=== PATIENT | female | born 1980 | race Caucasian/White ===

== ENCOUNTER → 2016-08-19 | Outpatient (CLI) | payer OTHER | END | disposition home or self-care (01) | LOC: GMAM 14:00 | PROVIDERS: ATTEND Family Medicine | DX: E53.9 Vitamin B deficiency, unspecified (principal); E03.9 Hypothyroidism, unspecified; R31.9 Hematuria, unspecified; E55.9 Vitamin D deficiency, unspecified ==

== ENCOUNTER → 2016-10-24 | Outpatient (CLI) | payer OTHER | END | disposition home or self-care (01) | LOC: GMAM 10:24 | PROVIDERS: ATTEND Family Medicine | DX: E03.9 Hypothyroidism, unspecified (principal) ==

== ENCOUNTER → 2017-05-09 | Outpatient (CLI) | payer OTHER ==
--- NOTE | 2017-05-09 13:06 | RAD ---
EXAM: Ankle,Left 3 Views HISTORY: PN IN LEFT ANKLE AND JOINTS OF LEFT FOOT COMPARISON: February 28, 2015 TECHNIQUE: Three radiographic views of ankle FINDINGS: Unremarkable bony alignment in the ankle without fracture nor dislocation. Tibial plafond and ankle mortise are maintained. Joint spaces are maintained. No malleolar swelling nor significant joint effusion. IMPRESSION: No bony injury in left ankle. No significant change since prior study. Electronically signed by: Francisco Calderon MD 05/09/2017 1:06 PM [facility]
== END ==
LOC: RAD 08:36
PROVIDERS: ATTEND Orthopaedic Surgery
DX: M25.572 Pain in left ankle and joints of left foot (principal)

== ENCOUNTER → 2019-02-19 | Outpatient (CLI) | payer BC ==
--- NOTE | 2019-02-19 08:07 | RAD ---
EXAM DESCRIPTION: Ankle x-ray,Left 3 Views CLINICAL HISTORY: 38 years, Female, PAIN IN LEFT ANKLE AND JOINTS OF LEFT FOOT COMPARISON: Previous x-ray left ankle three views May 09, 2017 TECHNIQUE: AP/lateral/oblique of the left ankle FINDINGS: Intact medial and lateral malleolus. Mild irregularities along the lateral aspect of the midfoot could be old trauma or degenerative change. No overlying soft tissue swelling to suggest acute avulsion. Small fragments are well-corticated. There is no significant soft tissue swelling laterally or medially. Intact proximal metatarsals. Intact dome of the talus. Lateral view shows no evidence of acute fracture of the body of the talus or calcaneus. No calcaneal spurring is seen. No ankle joint narrowing, spurring or effusion. IMPRESSION: Negative for evidence of acute fracture or dislocation. Electronically signed by: Cem Aden MD 02/19/2019 8:05 AM [facility]
== END ==
LOC: RAD 07:44
PROVIDERS: ATTEND Orthopaedic Surgery
DX: M25.572 Pain in left ankle and joints of left foot (principal)

== ENCOUNTER → 2019-02-25 | Outpatient (CLI) | payer BC ==
--- NOTE | 2019-02-26 08:50 | MRI ---
EXAM DESCRIPTION: MRI left ankle CLINICAL HISTORY: Lateral ankle pain. Peroneal tendinitis. Rolled the ankle 3 years ago COMPARISON: None. TECHNIQUE: Multiplanar, multisequence MR images of the left ankle FINDINGS: Abnormal orientation of the calcaneocuboid articulation medially. Full-thickness chondral loss along both sides of the joint with subchondral marrow edema and joint line osteophytes. Hypertrophic spurring at the margin of the joint with a separate well-corticated bone fragment which measures about 1 cm in greatest dimension. In addition, there are dorsal and lateral marginal osteophytes arising from both the calcaneus and the cuboid. A small separate fragment along the dorsal lateral joint line. Mild osseous edema. The other joints of the hindfoot and ankle are normal. No other full-thickness chondrosis or osteochondral lesion Tibiofibular syndesmosis and ligaments are intact. Lateral and medial ankle ligaments are intact Intramuscular edema within the peroneal muscles along the lower ankle. Markedly thickened peroneus longus and mildly thickened peroneus brevis tendons above the lateral malleolus. Flattened tendons retromalleolar with markedly attenuated irregular morphology at and distal to the fibula, extending from the fibula to the level of the peroneal tubercle. At and distal to the peroneal tubercle the peroneus longus tendon is focally thickened with interstitial fissuring between the tubercle and cuboid. Normal distal insertion. Peroneus longus tendon is markedly attenuated proximal to the peroneal tubercle. Interstitial split morphology distal to the peroneal tubercle to the base of the fifth metatarsal. Posterior tibial distal tendinosis and interstitial partial tear. The tendon is attenuated just proximal to the navicular insertion with interstitial fissuring and abnormal signal. Interstitial increased signal is also present in the navicular attachment of the calcaneonavicular ligament. Flexor digitorum and flexor hallux tendons are normal. Dorsiflexion tendons are normal Achilles tendinosis distally. No tendon tear. No osseous abnormality. 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 Likely remote posttraumatic deformity medial and dorsal lateral. If there has not been significant history of trauma this may be accelerated arthritis because of a developmental/morphologic atypical anterior subtalar and medial calcaneocuboid articulation, less likely High-grade partial tear of the peroneus longus and peroneus brevis tendons, probably acute on chronic tears. Attenuated tendons distal to the fibula and varying degrees of interstitial partial tear. Proximal to the retromalleolar fibula the tendons are chronically thickened and the muscle is edematous and mildly atrophic. Posterior tibial insertional tendinosis/partial tear. Partial interstitial tear of the calcaneonavicular ligament at the navicular attachment Electronically signed by: Abraham Raymundo MD 02/26/2019 8:48 AM [facility]
== END ==
LOC: MRI 12:58
PROVIDERS: ATTEND Orthopaedic Surgery
DX: M76.72 Peroneal tendinitis, left leg (principal); M19.072 Primary osteoarthritis, left ankle and foot; S86.312A Strain of muscle(s) and tendon(s) of peroneal muscle group at lower leg level, left leg, initial encounter; S86.812A Strain of other muscle(s) and tendon(s) at lower leg level, left leg, initial encounter; M62.572 Muscle wasting and atrophy, not elsewhere classified, left ankle and foot

== ENCOUNTER → 2019-12-24 | Outpatient (CLI) | payer BC | LOC: GMAM 12:08 | PROVIDERS: ATTEND Family Medicine | DX: M25.579 Pain in unspecified ankle and joints of unspecified foot (principal); E53.8 Deficiency of other specified B group vitamins; I10 Essential (primary) hypertension; E03.9 Hypothyroidism, unspecified; E55.9 Vitamin D deficiency, unspecified ==